=== PATIENT | male | born 1980 | race Two or more races ===

== ENCOUNTER 2024-03-13 17:31 | Emergency (ER) | payer SELFPAY ==
[~2024-03-13] VITALS: Ht 167.6 cm; Wt 75.0 kg
[2024-03-13 17:37] VITALS: TEMP 98
[2024-03-13] MEDS ORDERED: LISI-894 PO (17:50)
[2024-03-13] MEDS: ACETAMINOPHEN 500 MG TABLET PO ONE (21:21)
[2024-03-13 22:05] VITALS: BP 136/70; PULSE 70; RESP 18
== END 2024-03-13 22:52 | disposition home or self-care (01) ==
LOC: EMS 17:31
DX: S06.0X0A Concussion without loss of consciousness, initial encounter (principal); S40.812A Abrasion of left upper arm, initial encounter; M54.2 Cervicalgia; E78.00 Pure hypercholesterolemia, unspecified; I10 Essential (primary) hypertension; V49.9XXA Car occupant (driver) (passenger) injured in unspecified traffic accident, initial encounter; W22.11XA Striking against or struck by driver side automobile airbag, initial encounter; Y93.89 Activity, other specified; Y92.89 Other specified places as the place of occurrence of the external cause; Y99.8 Other external cause status
CPT/HCPCS: 72125; 99284; Z7502; Z7610